=== PATIENT | male | born 1945 | race Caucasian/White ===

== ENCOUNTER 2023-09-19 16:42 | Outpatient (RCR) | payer MEDICARE, SELFPAY | END 2023-09-19 23:59 | disposition home or self-care (01) | LOC: CRHB 16:42 | PROVIDERS: ATTENDING PHYSICIAN Internal Medicine Cardiovascular Disease | DX: I25.10 Atherosclerotic heart disease of native coronary artery without angina pectoris (principal); Z95.5 Presence of coronary angioplasty implant and graft; I25.2 Old myocardial infarction | CPT/HCPCS: G0422 ==

== ENCOUNTER 2023-12-01 13:18 | Outpatient (RCR) | payer MEDICARE, SELFPAY | END 2023-12-01 23:59 | disposition home or self-care (01) | LOC: CRHB 13:18 | PROVIDERS: ATTENDING PHYSICIAN Internal Medicine Cardiovascular Disease; FAMILY PHYSICIAN Internal Medicine | DX: I25.2 Old myocardial infarction (principal); I25.10 Atherosclerotic heart disease of native coronary artery without angina pectoris; Z95.5 Presence of coronary angioplasty implant and graft | CPT/HCPCS: G0422; G0423 ==

== ENCOUNTER 2023-12-18 13:21 | Outpatient (RCR) | payer MEDICARE, SELFPAY | END 2023-12-18 23:59 | disposition home or self-care (01) | LOC: CRHB 13:21 | PROVIDERS: ATTENDING PHYSICIAN Internal Medicine Cardiovascular Disease | DX: I25.2 Old myocardial infarction (principal); Z95.5 Presence of coronary angioplasty implant and graft; I10 Essential (primary) hypertension; Z79.82 Long term (current) use of aspirin | CPT/HCPCS: G0422; G0423 ==

== ENCOUNTER → 2024-02-28 07:58 | Outpatient (REF) | payer MEDICARE, SELFPAY | LOC: HWRAD 07:58 | PROVIDERS: ATTENDING PHYSICIAN Internal Medicine Endocrinology, Diabetes & Metabolism; FAMILY PHYSICIAN Internal Medicine | DX: E04.2 Nontoxic multinodular goiter (principal) | CPT/HCPCS: 76536 ==

== ENCOUNTER → 2025-06-04 13:42 | Outpatient (REF) | payer MEDICARE, SELFPAY | LOC: RAD 13:42 | PROVIDERS: ATTENDING PHYSICIAN Internal Medicine Endocrinology, Diabetes & Metabolism; FAMILY PHYSICIAN Internal Medicine | DX: E04.2 Nontoxic multinodular goiter (principal) | CPT/HCPCS: 76536 ==